=== PATIENT | female | born 1990 | race Caucasian/White ===

== ENCOUNTER 2017-04-29 18:14 | Emergency (ER) | payer SELFPAY ==
[~2017-04-29] VITALS: Ht 160 cm; Wt 81.6 kg
[2017-04-29 18:17] VITALS: Ht 160 cm; Wt 81.6 kg
[2017-04-29 19:38] VITALS: BP 120/72
== END 2017-04-29 19:38 | disposition home or self-care (01) ==
LOC: ED 18:14
DX: N10 Acute pyelonephritis (principal)
CPT/HCPCS: J0696

== ENCOUNTER 2019-09-23 19:53 | Emergency (ER) | payer SELFPAY ==
[~2019-09-23] VITALS: Ht 160 cm; Wt 71.2 kg
[2019-09-23 19:54] VITALS: Ht 160 cm; Wt 71.2 kg
[2019-09-23 20:45] LABS: BASOPHIL % 1.3 % (0-2); PLATELET COUNT 280 x10^3mcL (130-400)
[2019-09-23 20:52] LABS: RED CELL DISTRIBUTION WIDTH 16.3 % (11.5-14.5)
[2019-09-23 20:56] LABS: UA SPECIFIC GRAVITY 1.025 (1.005-1.035); microscopic required? YES; urine erythrocyte TRACE (NEGATIVE)
[2019-09-23 22:57] VITALS: BP 102/48
== END 2019-09-23 22:57 | disposition home or self-care (01) ==
LOC: ED 19:53
PROVIDERS: Emergency Medicine
DX: O23.41 Unspecified infection of urinary tract in pregnancy, first trimester (principal); Z3A.01 Less than 8 weeks gestation of pregnancy; Z20.828 Contact with and (suspected) exposure to other viral communicable diseases
CPT/HCPCS: 87804; J2405; J7030; Q0092; U0003-CS